=== PATIENT | male | born 1990 | race Caucasian/White ===

== ENCOUNTER 2016-05-07 23:18 | Emergency (ER) | payer OTHER ==
[2016-05-07 23:22] VITALS: BP 115/74; PULSE 83; TEMP 99.2; BMI 29.3
--- NOTE | 2016-05-07 23:25 | PDOC ---
History of Present Illness - General Chief Complaint: Shortness of Breath Stated Complaint: SOB Time Seen by Provider: 05/07/16 23:20 History Source: Patient Exam Limitations: No Limitations - History of Present Illness Initial Comments: 05/07/16 23:44 This is a 26-year-old male who comes in complaining of pleuritic type chest pain 2 days. Patient denies any fever or chills or recent upper respiratory tract infections. Patient said pain is worse when he takes a deep breath and also worse when he moves sometimes. Patient denies history of similar pain in the past. Patient has not taken anything for the pain. Patient is otherwise healthy. PAST MEDICAL HISTORY: no significant history PAST SURGICAL HISTORY: no significant history FAMILY HISTORY: no pertinant history SOCIAL HISTORY: Pt lives with family and is employed. MEDICATIONS: reviewed ALLERGIES: As per nursing notes Review of Systems General: No fevers or chills, no weakness, no weight loss HEENT: No change in vision. No sore throat,. No ear pain CardioVascular: Pleuritic type chest pain as per history of present illness Respiratory:No cough, or wheezing. Gastrointestinal: no nausea, vomitting, diarrhea or constipation, No rectal bleeding Genitourinary: No dysuria, hematuria, or frequency Musculoskeletal: No joint or muscle pain or swelling Neurologic: No headache, vertigo, dizziness or loss of consciousness Psychiatric: nor depression Skin: No rashes or easy bruising Endocrine: no increased thirst or abnormal weight change Allergic: no skin or latex allergy All other systems reviewed and normal Exam: General: Well-nourished well-developed individual, no acute distress HEENT: Throat: Normal, tonsils normal, no erythema or exudate Neck: Supple, no meningeal signs, no lymphadenopathy Eyes::Pupils equal reactive and round, extraocular motion intact Chest: Nontender to palpation Cardiac: S1-S2 normal, regular rate and rhythm, no murmurs rubs or gallops Respiratory: Lungs clear to auscultation bilateral Abdomen: Soft, nondistended, normal bowel sounds, nontender to palpation diffusely Extremities: Warm, dry, no cyanosis, clubbing, or edema Skin: No rashes Neuro: Alert and oriented x3, nonfocal exam, grossly intact, normal gait Psych: Normal mood and affect Assessment and plan: This is a 26-year-old male with pleuritic type chest pain/ pleurisy 2 days. Patient started on ibuprofen 800 mg here in the emergency room and a prescription was sent to his pharmacy to continue the medication. Patient discharged home will follow-up with his primary care doctor in 1 week if not improved. Past History - Past Medical History Allergies/Adverse Reactions: Allergies Allergy/AdvReac Type Severity Reaction Status Date / Time No Known Allergies Allergy Unverified 04/26/15 22:58 Home Medications: Ambulatory Orders Ibuprofen [Motrin -] 800 mg PO TID #42 tablet 05/07/16 Kidney Stones: Yes Liver Disease: Yes - Surgical History Appendectomy: Yes (WITH BOWEL PERF) - Psycho/Social/Smoking Cessation Hx Anxiety: No Suicidal Ideation: No Smoking History: Current every day smoker Have you smoked in the past 12 months: Yes Number of Cigarettes Smoked Daily: 0 If you are a former smoker, when did you quit?: MARIJUANA DAILY Information on smoking cessation initiated: Yes 'Breaking Loose' booklet given: 05/07/16 *Physical Exam - Vital Signs Last Vital Signs Temp Pulse Resp BP Pulse Ox 99.2 F 83 16 115/74 100 05/07/16 23:20 05/07/16 23:20 05/07/16 23:20 05/07/16 23:20 05/07/16 23:20 *DC/Admit/Observation/Transfer Diagnosis at time of Disposition: Pleurisy - Discharge Dispostion Disposition: HOME Condition at time of disposition: Stable Admit: No - Patient Instructions Printed Discharge Instructions: DI for Pleurisy Additional Instructions: Take ibuprofen 800 mg 3 times a day with food don't take on an empty stomach. I sent a prescription to her pharmacy for the ibuprofen. Take the ibuprofen for 7 days Return to the emergency department immediately with ANY new, persistent or worsening symptoms. Continue any medications as previously prescribed by your physician. You should follow up with your primary doctor as soon as possible regarding today's emergency department visit. . Please make sure your doctor reviews the results of your emergency evaluation. Thank you for coming to the Emergency Department today for your care. It was a pleasure to see you today. Please note that your evaluation is INCOMPLETE until you follow-up with your doctor.
[2016-05-07] MEDS ORDERED: IBUPROFEN 400 MG TABLET (FP) PO ONE ×2 (23:45→23:47)
== END 2016-05-08 | disposition home or self-care (01) ==
LOC: FER 23:18
DX: R09.1 Pleurisy (principal); F17.210 Nicotine dependence, cigarettes, uncomplicated; Z87.442 Personal history of urinary calculi
CPT/HCPCS: 99281-25

== ENCOUNTER 2016-07-08 22:20 | Emergency (ER) | payer SELFPAY ==
[2016-07-08 22:48] VITALS: BP 118/65; PULSE 61; TEMP 98.3; BMI 28.3
--- NOTE | 2016-07-08 23:09 | PDOC ---
History of Present Illness - General History Source: Patient Exam Limitations: No Limitations - History of Present Illness Initial Comments: 07/08/16 23:18 The patient is a 26 year old male with no significant past medical history who presents to the ED with several days of worsening lower abdominal pain. Patient reports he developed lower abdominal pain that is colicky in nature several days ago, however today his pain worsen. Reports associated nausea and nonbloody vomiting, but no diarrhea. His last meal was about 10am this morning and states having normal bowel movements. The patient denies fever, chills, cough, SOB, chest pain, and palpitations. Allergies: NKDA Social History: No alcohol, tobacco, or drug use reported. Past Surgical History: s/p appendectomy and bowel perf resulted from the appendectomy PCP: Dr. Alejandro De Dios <Julia Glover - Last Filed: 07/09/16 00:48> - General History Source: Patient <Donovan Rivas - Last Filed: 07/09/16 00:55> - General Chief Complaint: Pain, Acute Stated Complaint: ABDOMINAL PAIN Time Seen by Provider: 07/08/16 23:08 Past History <Julia Glover - Last Filed: 07/09/16 00:48> - Past Medical History Kidney Stones: Yes Liver Disease: Yes - Surgical History Appendectomy: Yes (WITH BOWEL PERF) - Psycho/Social/Smoking Cessation Hx Anxiety: No Suicidal Ideation: No Smoking History: Current every day smoker Have you smoked in the past 12 months: Yes Number of Cigarettes Smoked Daily: 0 If you are a former smoker, when did you quit?: MARIJUANA DAILY Information on smoking cessation initiated: No 'Breaking Loose' booklet given: 05/07/16 <Donovan Rivas - Last Filed: 07/09/16 00:55> - Past Medical History Allergies/Adverse Reactions: Allergies Allergy/AdvReac Type Severity Reaction Status Date / Time No Known Allergies Allergy Verified 07/08/16 22:44 Home Medications: Ambulatory Orders Ibuprofen 800 mg PO TID #30 tablet 07/09/16 Oxycodone HCl/Acetaminophen [Percocet 5-325 mg Tablet] 1 - 2 tab PO Q6H #20 tablet MDD 4 07/09/16 Review of Systems - Review of Systems Able to Perform ROS?: Yes Comments:: 07/08/16 23:18 CONSTITUTIONAL: Absent: fever, no chills, no fatigue EYES: Absent: visual changes ENT: Absent: ear pain, no sore throat CARDIOVASCULAR: Absent: chest pain, no palpitations RESPIRATORY: Absent: cough, no SOB GI: +lower abdominal pain, nausea, vomiting Absent: no constipation, no diarrhea GENITOURINARY: Absent: dysuria, no frequency, no hematuria MUSKULOSKELETAL: Absent: back pain, no arthralgia, no myalgia SKIN: Absent: rash NEURO: Absent: headache <Julia Glover - Last Filed: 07/09/16 00:48> *Physical Exam - Vital Signs Last Vital Signs Temp Pulse Resp BP Pulse Ox 98.3 F 61 18 118/65 99 07/08/16 22:47 07/08/16 22:47 07/08/16 22:47 07/08/16 22:47 07/08/16 22:47 - Physical Exam Comments: 07/08/16 23:18 GENERAL: Well-appearing, well-nourished. No apparent distress. HEENT: Normocephalic, atraumatic. PERRL, EOM intact. CARDIOVASCULAR: Normal S1, S2. Regular rate and rhythm. PULMONARY: Clear to auscultation bilaterally. ABDOMEN: Soft, non-distended, non-tender. EXTREMITIES: Normal ROM in all four extremities. No gross deformities. SKIN: Warm, dry. No rash NEUROLOGICAL: No focal neurological deficits. <Julia Glover - Last Filed: 07/09/16 00:48> - Vital Signs Last Vital Signs Temp Pulse Resp BP Pulse Ox 98.3 F 61 18 118/65 99 07/08/16 22:47 07/08/16 22:47 07/08/16 22:47 07/08/16 22:47 07/08/16 22:47 <Donovan Rivas - Last Filed: 07/09/16 00:55> ED Treatment Course - LABORATORY CBC & Chemistry Diagram: 07/08/16 23:20 07/08/16 23:20 - RADIOLOGY Radiograph Interpretation: 07/09/16 00:48 EXAM: CT abdomen and pelvis without contrast Reviewed by Imaging industrial automation engineer: FINDINGS: Lung bases are clear. The visualized cardiac chambers are normal size and configuration. Normal liver, gallbladder, pancreas, spleen, adrenal glands and kidneys. There is a 10 mm mid right ureteral stone without hydroureter. No other stones identified. The stomach and abdominal small and large bowel are normal. There is no aortic aneurysm. There is no significant retroperitoneal lymphadenopathy. The pelvic small and large bowel are normal. Status post appendectomy. The urinary bladder and prostate gland are normal. No pelvic free fluid is identified. There is no significant pelvic lymphadenopathy. IMPRESSION: 10 mm mid right ureteral stone without hydroureter. <Julia Glover - Last Filed: 07/09/16 00:48> - LABORATORY CBC & Chemistry Diagram: 07/08/16 23:20 07/08/16 23:20 <Donovan Rivas - Last Filed: 07/09/16 00:55> Medical Decision Making - Medical Decision Making 07/09/16 00:53 Dr. Rivas: The scribe's documentation has been prepared under my direction and personally reviewed by me in its entirery. I confirm that the note above accurately reflects all work, treatment, procedures, and medical decision making performed by me. Pt found to have a 10mm stone on right side without sign of hydronephrosis. Pt advised to follow up with urology. Rx Percocet and Ibuprofen sent to pharmacy <Donovan Rivas - Last Filed: 07/09/16 00:55> *DC/Admit/Observation/Transfer - Attestations Scribe Attestion: 07/08/16 23:18 Documentation prepared by Julia Glover, acting as medical technologist microbiology for Donovan Rivas MD <Julia Glover - Last Filed: 07/09/16 00:48> - Discharge Dispostion Admit: No <Donovan Rivas - Last Filed: 07/09/16 00:55> Diagnosis at time of Disposition: Renal calculus - Discharge Dispostion Disposition: HOME Condition at time of disposition: Stable - Prescriptions Prescriptions: Ibuprofen 800 mg PO TID #30 tablet Oxycodone HCl/Acetaminophen [Percocet 5-325 mg Tablet] 1 - 2 tab PO Q6H #20 tablet MDD 4 - Referrals Referrals: Alejandro De Dios MD [Primary Care Provider] - Mike Drake MD [Staff Physician] - - Patient Instructions Printed Discharge Instructions: Kidney Stones -- Adult Additional Instructions: TAke medication as directed. Follow up with the urologist referred to you in the ER.
[2016-07-08] MEDS ORDERED: KETOROLAC TROMETHAMINE 30 MG/1 ML VIAL IVPUSH ONE (23:13)
[2016-07-08] MEDS ORDERED: ONDANSETRON 4 MG/2 ML VIAL IVPUSH STA (23:13)
[2016-07-08] MEDS ORDERED: SODIUM CHLORIDE 1,000 ML IV STA (23:13)
[2016-07-08] MEDS ORDERED: KETOROLAC TROMETHAMINE 30 MG/1 ML VIAL ONE (23:25)
[2016-07-08] MEDS ORDERED: ONDANSETRON 4 MG/2 ML VIAL ONE (23:25)
[2016-07-08 23:28] LABS: URINE APPEARANCE CLEAR; URINE BILIRUBIN NEGATIVE (NEGATIVE); URINE COLOR YELLOW; URINE GLUCOSE (UA) NEGATIVE (NEGATIVE); URINE KETONE NEGATIVE (NEGATIVE); URINE NITRITE NEGATIVE (NEGATIVE); URINE PROTEIN NEGATIVE (NEGATIVE); URINE UROBILINOGEN NEGATIVE E.U./dl (0.2-1.0)
[2016-07-08 23:58] LABS: URINE BLOOD 1+ (NEGATIVE); URINE LEUK ESTERASE TRACE (NEGATIVE)
[2016-07-09 00:02] LABS: BASOPHIL 0.3 % (0-2.0); EOSINOPHIL 1.1 % (0-4.5); MCH 31.7 pg (25.7-33.7); MEAN CELL VOLUME 90.8 fl (80-96); MEAN PLT VOLUME 7.7 fl (7.5-11.1); NEUTROPHILS 44.3 % (42.8-82.8); PLATELET COUNT 299 K/MM3 (134-434); RDW 12.9 % (11.9-15.9); WHITE BLOOD COUNT 9.2 K/mm3 (4.0-10.0)
[2016-07-09 00:03] LABS: URINE BACTERIA FEW /hpf (NONE SEEN); URINE MUCUS MANY; URINE RBC 31 /hpf (0-3); URINE WBC 15 /hpf (3-5)
[2016-07-09 00:22] LABS: ALBUMIN 4.1 g/dl (3.4-5.0); ANION GAP 11 (8-16); BILIRUBIN,TOTAL 0.7 mg/dL (0.2-1.0); CALCIUM 9.3 mg/dL (8.5-10.1); CO2 31 mmol/L (21-32); CREATININE 0.8 mg/dL (0.7-1.3); GLUCOSE,RANDOM 86 mg/dL (74-106); SGOT/AST 15 U/L (15-37); SGPT/ALT 40 U/L (12-78); TOT PROT 8.1 g/dl (6.4-8.2)
[2016-07-09 00:23] LABS: ALK PHOS 58 U/L (45-117)
[2016-07-09] MEDS ORDERED: OXYCODONE/APAP 5/325MG COMBO TABLET PO ONE (00:50)
[2016-07-09] MEDS ORDERED: OXYCODONE/APAP 5/325MG COMBO TABLET ONE (01:00)
== END 2016-07-09 01:06 | disposition home or self-care (01) ==
LOC: JER 22:20
PROC: 3E0333Z Introduction of Anti-inflammatory into Peripheral Vein, Percutaneous Approach (ICD-10-PCS; principal; 2016-07-08)
PROC: 3E033GC Introduction of Other Therapeutic Substance into Peripheral Vein, Percutaneous Approach (ICD-10-PCS; 2016-07-08)
DX: N20.0 Calculus of kidney (principal); Z87.442 Personal history of urinary calculi
CPT/HCPCS: 36415; 74176; 80053; 81003; 81015; 85025; 99281-25

== ENCOUNTER 2016-07-31 22:39 | Emergency (ER) | payer SELFPAY ==
[2016-07-31 22:47] VITALS: BP 118/62; PULSE 72; TEMP 99.5; BMI 28.7
--- NOTE | 2016-07-31 23:15 | PDOC ---
History of Present Illness - General Chief Complaint: Pain, Acute Stated Complaint: RT KNEE PAIN Time Seen by Provider: 07/31/16 22:47 History Source: Patient Exam Limitations: No Limitations - History of Present Illness Initial Comments: 07/31/16 23:11 This is a 26-year-old male who comes in complaining of right knee pain. Patient said beginning after he was wrestling with his son when he was knocked into him from behind causing him to fall backwards and twisted his knee. Patient is able to wear bare weight but he says it is uncomfortable when he fully extends his knee. Patient is otherwise healthy and denies any complaints. PAST MEDICAL HISTORY: no significant history PAST SURGICAL HISTORY: no significant history FAMILY HISTORY: no pertinant history SOCIAL HISTORY: Pt lives with family and is employed. MEDICATIONS: reviewed ALLERGIES: As per nursing notes Review of Systems General: No fevers or chills, no weakness, no weight loss HEENT: No change in vision. No sore throat,. No ear pain CardioVascular: No chest pain or shortness of breath Respiratory:No cough, or wheezing. Gastrointestinal: no nausea, vomitting, diarrhea or constipation, No rectal bleeding Genitourinary: No dysuria, hematuria, or frequency Musculoskeletal: Right knee pain Neurologic: No headache, vertigo, dizziness or loss of consciousness Psychiatric: nor depression Skin: No rashes or easy bruising Endocrine: no increased thirst or abnormal weight change Allergic: no skin or latex allergy All other systems reviewed and normal GENERAL: The patient is awake, alert, and fully oriented, in no acute distress. HEAD: Normal with no signs of trauma. EYES: Pupils equal, round and reactive to light, extraocular movements intact, sclera anicteric, conjunctiva clear. EXTREMITIES: Normal range of motion, no edema. Right knee: There is some mild swelling medially with tenderness on palpation over the medial collateral ligament. Patient is able to fully extend his knee with minimal difficulty. Neurovascular distal is intact. NEUROLOGICAL: Normal speech, normal gait. PSYCH: Normal mood, normal affect. SKIN: Warm, Dry, normal turgor, no rashes or lesions noted. X-ray no acute fracture or dislocation question patella fidencio. Assessment and plan: This is a 26-year-old male who injured his knee well play wrestling with his son. Patient has a sprain of most likely the medial collateral ligament. Patient given Gregor wrap and orthopedic follow-up. Past History - Past Medical History Allergies/Adverse Reactions: Allergies Allergy/AdvReac Type Severity Reaction Status Date / Time No Known Allergies Allergy Verified 07/08/16 22:44 Home Medications: Ambulatory Orders NK [No Known Home Medication] 07/31/16 Kidney Stones: Yes Liver Disease: Yes - Surgical History Appendectomy: Yes (WITH BOWEL PERF) - Psycho/Social/Smoking Cessation Hx Anxiety: No Suicidal Ideation: No Smoking History: Never smoked Have you smoked in the past 12 months: Yes Number of Cigarettes Smoked Daily: 0 If you are a former smoker, when did you quit?: MARIJUANA DAILY 'Breaking Loose' booklet given: 05/07/16 *Physical Exam - Vital Signs Last Vital Signs Temp Pulse Resp BP Pulse Ox 99.5 F 72 16 118/62 100 07/31/16 22:44 07/31/16 22:44 07/31/16 22:44 07/31/16 22:44 07/31/16 22:44 ED Treatment Course - RADIOLOGY Radiology Studies Ordered: Category Date Time Status KNEE 3 POS-RIGHT [RAD] Stat Radiology 07/31/16 22:41 Taken *DC/Admit/Observation/Transfer Diagnosis at time of Disposition: Sprain of right knee Qualifiers: Encounter type: initial encounter Involved ligament of knee: medial collateral ligament Qualified Code(s): S83.411A - Sprain of medial collateral ligament of right knee, initial encounter - Discharge Dispostion Disposition: HOME Condition at time of disposition: Stable Admit: No - Patient Instructions Printed Discharge Instructions: DI for Knee Sprain, How to Use an Elastic Bandage-Knee Sprain Additional Instructions: For the pain you can take ibuprofen or acetaminophen. Follow-up with an orthopedist if you need an orthopedist call Dr. Moore at [phone] for an appointment. Return to the emergency department immediately with ANY new, persistent or worsening symptoms. Continue any medications as previously prescribed by your physician. You should follow up with your primary doctor as soon as possible regarding today's emergency department visit. . Please make sure your doctor reviews the results of your emergency evaluation. Thank you for coming to the Emergency Department today for your care. It was a pleasure to see you today. Please note that your evaluation is INCOMPLETE until you follow-up with your doctor.
[2016-07-31] MEDS ORDERED: IBUPROFEN 600 MG TABLET (FP) PO ONE ×2 (23:21→23:22)
== END 2016-07-31 23:24 | disposition home or self-care (01) ==
LOC: FER 22:39
DX: S83.411A Sprain of medial collateral ligament of right knee, initial encounter (principal); W18.39XA Other fall on same level, initial encounter; Y93.72 Activity, wrestling; Y92.9 Unspecified place or not applicable
CPT/HCPCS: 73562-TC-RT; 99282-25

== ENCOUNTER 2017-11-21 18:45 | Emergency (ER) | payer OTHER ==
[2017-11-21 18:58] VITALS: BP 124/83; PULSE 84; TEMP 99; BMI 32.1
--- NOTE | 2017-11-21 18:59 | PDOC ---
History of Present Illness - General History Source: Patient, Old Records Exam Limitations: No Limitations - History of Present Illness Initial Comments: 11/21/17 19:26 Patient is a 27 year old male with no significant past medical history who present to the ED with complaints of right sided chest pain that began x8 days ago. Patient reports sitting in the studio last week when experienced an episode of syncope that he states lasted x1 minute in duration. He reports listening to his friend talk about his daughters surgery when he suddenly began to feel unwell, followed by feinting. Patient reports experiencing right sided chest pain since regaining consciousness. He reports right sided chest pain is increased with movement and deep inspiration. As per patient's girlfriend, patient took one dose of 800mg of motrin x7 days ago on wednesday with no relief. Patient reports pain has shown no signs of subsiding over time, prompting him to come into the ED for further evaluation. Denies nausea, vomiting. Denies contact with sick individuals, out of state travelling. Denies fevers, chills. Denies dysuria. Hematuria. Denies constipation, diarrhea. Denies any other symptoms. Allergies: None Social history: No smoking. No alcohol. No illicit drugs. Surgical history: s/p appendectomy and bowel perf resulted from the appendectomy PMD: None <Cesar Christensen - Last Filed: 11/21/17 19:26> <Rosalee Merchant - Last Filed: 11/21/17 19:44> - General Chief Complaint: Pain Stated Complaint: RIGHT CHEST WALL PAIN Time Seen by Provider: 11/21/17 18:58 Past History <Cesar Christensen - Last Filed: 11/21/17 19:26> - Past Medical History COPD: No Kidney Stones: Yes Liver Disease: Yes - Surgical History Appendectomy: Yes (WITH BOWEL PERF) - Suicide/Smoking/Psychosocial Hx Smoking History: Never smoked Have you smoked in the past 12 months: No Number of Cigarettes Smoked Daily: 0 If you are a former smoker, when did you quit?: MARIJUANA DAILY Information on smoking cessation initiated: Yes 'Breaking Loose' booklet given: 05/07/16 Hx Alcohol Use: No Drug/Substance Use Hx: Yes (MARIJUANA) Substance Use Type: Marijuana <Rosalee Merchant - Last Filed: 11/21/17 19:44> - Past Medical History Allergies/Adverse Reactions: Allergies Allergy/AdvReac Type Severity Reaction Status Date / Time No Known Allergies Allergy Verified 11/21/17 18:46 Home Medications: Ambulatory Orders NK [No Known Home Medication] 11/21/17 Review of Systems - Review of Systems Able to Perform ROS?: Yes Comments:: 11/21/17 19:26 GENERAL/CONSTITUTIONAL: No fever or chills. No weakness. HEAD, EYES, EARS, NOSE AND THROAT: No change in vision. No ear pain or discharge. No sore throat. CARDIOVASCULAR: +Right sided chest pain. RESPIRATORY: No cough, wheezing, or hemoptysis. GASTROINTESTINAL: No nausea, vomiting, diarrhea or constipation. GENITOURINARY: No dysuria, frequency, or change in urination. MUSCULOSKELETAL: No joint or muscle swelling or pain. No neck or back pain. SKIN: No rash NEUROLOGIC: No headache, vertigo, loss of consciousness, or change in strength/ sensation. ENDOCRINE: No increased thirst. No abnormal weight change. HEMATOLOGIC/LYMPHATIC: No anemia, easy bleeding, or history of blood clots. ALLERGIC/IMMUNOLOGIC: No hives or skin allergy. <Cesar Christensen - Last Filed: 11/21/17 19:26> *Physical Exam - Vital Signs Last Vital Signs Temp Pulse Resp BP Pulse Ox 99 F 84 16 124/83 11/21/17 18:46 11/21/17 18:46 11/21/17 18:46 11/21/17 18:46 - Physical Exam Comments: 11/21/17 19:27 GENERAL: Awake, alert, and fully oriented, in no acute distress HEAD: No signs of trauma EYES: PERRLA, EOMI, sclera anicteric, conjunctiva clear ENT: Auricles normal inspection, hearing grossly normal, nares patent, oropharynx clear without exudates. Moist mucosa NECK: Normal ROM, supple, no lymphadenopathy, JVD, or masses LUNGS: Breath sounds equal, clear to auscultation bilaterally. No wheezes, and no crackles HEART: Regular rate and rhythm, normal S1 and S2, no murmurs, rubs or gallops ABDOMEN: Soft, nontender, normoactive bowel sounds. No guarding, no rebound. No masses EXTREMITIES: Normal range of motion, no edema. No clubbing or cyanosis. No cords, erythema, or tenderness MUSCULOSKELETAL: +Right sided pleuritic chest pain. NEUROLOGICAL: Cranial nerves II through XII grossly intact. Normal speech, normal gait SKIN: Warm, Dry, normal turgor, no rashes or lesions noted. <Cesar Christensen - Last Filed: 11/21/17 19:26> - Vital Signs Last Vital Signs Temp Pulse Resp BP Pulse Ox 99 F 84 16 124/83 11/21/17 18:46 11/21/17 18:46 11/21/17 18:46 11/21/17 18:46 <Rosalee Merchant - Last Filed: 11/21/17 19:44> ED Treatment Course - Medications Given in the ED: ED Medications Discontinued Medications Generic Name Dose Route Start Last Admin Trade Name Gloria PRN Reason Stop Dose Admin Ketorolac Tromethamine 60 mg 11/21/17 19:09 11/21/17 19:18 Toradol Injection - IM 11/21/17 19:10 60 mg ONCE ONE Administration Methocarbamol 1,000 mg 11/21/17 19:09 11/21/17 19:17 Robaxin - PO 11/21/17 19:10 1,000 mg ONCE ONE Administration <Cesar Christensen - Last Filed: 11/21/17 19:26> Medical Decision Making - Medical Decision Making 11/21/17 19:44 Patient Name: JUDI LEON THIS IS A PRELIMINARY REPORT FROM [facility] [employer] DATE OF SERVICE: 2017-11-21 19:23:56 IMAGES: 3 Exam: Chest 2 views Clinical indication:Right sided chest pain. Comparison:None available. Findings: PA and lateral views of the chest were provided. The pulmonary parenchyma and pleural surfaces are unremarkable. The visualized cardiomediastinal structures and bony structures are unremarkable. Impression: Negative chest x-ray <Rosalee Merchant - Last Filed: 11/21/17 19:44> *DC/Admit/Observation/Transfer - Attestations Scribe Attestion: 11/21/17 19:27 Documentation prepared by Cesar Christensen, acting as medical device for Rosalee Merchant MD. <Cesar Christensen - Last Filed: 11/21/17 19:26> - Discharge Dispostion Decision to Admit order: No <Rosalee Merchant - Last Filed: 11/21/17 19:44> Diagnosis at time of Disposition: Pleurisy, Musculoskeletal chest pain - Discharge Dispostion Condition at time of disposition: Stable - Patient Instructions Printed Discharge Instructions: DI for Atypical Chest Pain
[2017-11-21] MEDS ORDERED: KETOROLAC TROMETHAMINE 60 MG/2 ML VIAL IM ONE (19:09)
[2017-11-21] MEDS ORDERED: METHOCARBAMOL 500 MG TABLET PO ONE (19:09)
[2017-11-21] MEDS ORDERED: METHOCARBAMOL 500 MG TABLET ONE (19:14)
[2017-11-21] MEDS ORDERED: KETOROLAC TROMETHAMINE 60 MG/2 ML VIAL ONE (19:14)
--- NOTE | 2017-11-22 14:30 | EKG ---
Test Reason : Blood Pressure : / mmHG Vent. Rate : 066 BPM Atrial Rate : 066 BPM P-R Int : 160 ms QRS Dur : 106 ms QT Int : 370 ms P-R-T Axes : 057 047 029 degrees QTc Int : 387 ms NORMAL SINUS RHYTHM NORMAL ECG NO PREVIOUS ECGS AVAILABLE Confirmed by JOSE ALFREDO MAZARIEGOS MD ([id number]) on 11/22/2017 2:30:37 PM Referred By: MARISA Confirmed By:JOSE ALFREDO MAZARIEGOS MD
== END 2017-11-21 19:49 | disposition home or self-care (01) ==
LOC: FER 18:45
PROC: 3E0233Z Introduction of Anti-inflammatory into Muscle, Percutaneous Approach (ICD-10-PCS; principal; 2017-11-21)
DX: R09.1 Pleurisy (principal); R07.89 Other chest pain
CPT/HCPCS: 71046-TC-FY; 93005; 99282-25

== ENCOUNTER 2018-04-16 21:36 | Emergency (ER) | payer OTHER ==
[2018-04-16 21:47] VITALS: BP 134/84; PULSE 100; TEMP 100.8; BMI 31.8
--- NOTE | 2018-04-16 22:45 | PDOC ---
History of Present Illness - General History Source: Patient Exam Limitations: No Limitations - History of Present Illness Initial Comments: 04/16/18 23:05 The patient is a 28 year old male with a past medical history of kidney stones, hand arthritis, and persistent lateral knee pain here today for evaluation of flu symptoms. The patient reports that his symptoms began on (04/14) and have been getting worse. He reports having fever, headache, back pain, general weakness, sore throat, and rhinorrhea. He notes taking motrin once with no relief. The patient also reports coldness in hands and feet and intermittent numbness in hands. Patient denies lightheadedness. Denies chills. Denies chest pain, shortness of breath. Denies nausea, vomiting, diarrhea, abdominal pain. Denies lower extremity edema. Denies urinary symptoms. Denies sick contact. Allergies: NKA Social history: Denies tobacco use PCP: none <Vance Phillips - Last Filed: 04/16/18 23:05> <Libia Sandoval - Last Filed: 04/17/18 04:04> - General Chief Complaint: Cold Symptoms Stated Complaint: FEVER Time Seen by Provider: 04/16/18 22:44 Past History <Vance Phillips - Last Filed: 04/16/18 23:05> - Past Medical History COPD: No Kidney Stones: Yes Liver Disease: Yes - Surgical History Appendectomy: Yes (WITH BOWEL PERF) - Suicide/Smoking/Psychosocial Hx Smoking History: Never smoked Have you smoked in the past 12 months: No Number of Cigarettes Smoked Daily: 0 If you are a former smoker, when did you quit?: MARIJUANA DAILY 'Breaking Loose' booklet given: 05/07/16 Hx Alcohol Use: No Drug/Substance Use Hx: Yes (MARIJUANA) Substance Use Type: Marijuana <Libia Sandoval - Last Filed: 04/17/18 04:04> - Past Medical History Allergies/Adverse Reactions: Allergies Allergy/AdvReac Type Severity Reaction Status Date / Time No Known Allergies Allergy Verified 11/21/17 18:46 Home Medications: Ambulatory Orders Ketorolac Tromethamine [Toradol] 10 mg PO TID PRN #20 tablet 04/16/18 Review of Systems - Review of Systems Able to Perform ROS?: Yes Comments:: 04/16/18 23:05 All systems are reviewed and negative except as noted in the HPI <Vance Phillips - Last Filed: 04/16/18 23:05> *Physical Exam - Vital Signs Last Vital Signs Temp Pulse Resp BP Pulse Ox 100.8 F H 100 H 16 134/84 98 04/16/18 21:37 04/16/18 21:37 04/16/18 21:37 04/16/18 21:37 04/16/18 21:37 - Physical Exam Comments: 04/16/18 23:06 GENERAL: Awake, alert, and fully oriented, in no acute distress HEAD: No signs of trauma EYES: PERRLA, EOMI, sclera anicteric, conjunctiva clear ENT: +dry mucous membranes. +erythematous throat with 1+ edematous tonsils. Auricles normal inspection, hearing grossly normal, nares patent, oropharynx clear without exudates. NECK: Normal ROM, supple, no lymphadenopathy, JVD, or masses LUNGS: Breath sounds equal, clear to auscultation bilaterally. No wheezes, and no crackles HEART: Regular rate and rhythm, normal S1 and S2, no murmurs, rubs or gallops ABDOMEN: Soft, nontender, normoactive bowel sounds. No guarding, no rebound. No masses EXTREMITIES: +mild tenderness of fibular head of right lower leg. Normal range of motion, no edema. No clubbing or cyanosis. No cords, erythema, or tenderness NEUROLOGICAL: Cranial nerves II through XII grossly intact. Normal speech, normal gait SKIN: Warm, Dry, normal turgor, no rashes or lesions noted. <AlanVance - Last Filed: 04/16/18 23:05> - Vital Signs Last Vital Signs Temp Pulse Resp BP Pulse Ox 100.8 F H 100 H 16 134/84 98 04/16/18 21:37 04/16/18 21:37 04/16/18 21:37 04/16/18 21:37 04/16/18 21:37 <Libia Sandoval - Last Filed: 04/17/18 04:04> Moderate Sedation - Procedure Monitoring Vital Signs: Procedure Monitoring Vital Signs Temperature 100.8 F H 04/16/18 21:37 Pulse Rate 100 H 04/16/18 21:37 Respiratory Rate 16 04/16/18 21:37 Blood Pressure 134/84 04/16/18 21:37 O2 Sat by Pulse Oximetry (%) 98 04/16/18 21:37 <Vance Phillips - Last Filed: 04/16/18 23:05> - Procedure Monitoring Vital Signs: Procedure Monitoring Vital Signs Temperature 100.8 F H 04/16/18 21:37 Pulse Rate 100 H 04/16/18 21:37 Respiratory Rate 16 04/16/18 21:37 Blood Pressure 134/84 04/16/18 21:37 O2 Sat by Pulse Oximetry (%) 98 04/16/18 21:37 <Libia Sandoval - Last Filed: 04/17/18 04:04> Medical Decision Making - Medical Decision Making Documentation has been prepared under my direction and personally reviewed by me in its entirety. I attest that this documented accurately reflects all work, treatment, procedures and medical decision making performed by me. <Libia Sandoval - Last Filed: 04/17/18 04:04> *DC/Admit/Observation/Transfer - Attestations Scribe Attestion: 04/16/18 23:06 Documentation prepared by FREDDY Llanes, acting as healthcare or medical for Libia Sandoval MD. <Vance Phillips - Last Filed: 04/16/18 23:05> <Libia Sandoval - Last Filed: 04/17/18 04:04> Diagnosis at time of Disposition: Viral syndrome - Discharge Dispostion Disposition: HOME Condition at time of disposition: Stable - Prescriptions Prescriptions: Ketorolac Tromethamine [Toradol] 10 mg PO TID PRN #20 tablet PRN Reason: Pain - Referrals Referrals: Delroy Frey MD [Staff Physician] - - Patient Instructions Printed Discharge Instructions: DI for Viral Syndrome Additional Instructions: drink plenty of water;rest Can take Toradol tablets or acetaminophen as needed for pain/fever No work for the next 2 days We will contact you if influenza is positive; Tamiflu prescription will be sent here pharmacy Return to ER if you have severe pain/persistent high fever Follow-up with orthopedic group within the next 2 weeks for right lower leg pain/hand swelling - Post Discharge Activity Forms/Work/School Notes: Back to Work
[2018-04-16] MEDS ORDERED: IBUPROFEN 400 MG TABLET (FP) PO ONE ×2 (22:59→23:00)
[2018-04-16 23:15] LABS: PH,URINE 6.5 (4.5-8); URINE APPEARANCE Clear; URINE BILIRUBIN Negative (NEGATIVE); URINE COLOR Yellow; URINE GLUCOSE (UA) Negative (NEGATIVE); URINE KETONE Trace (NEGATIVE); URINE LEUK ESTERASE Negative (NEGATIVE); URINE NITRITE Negative (NEGATIVE); URINE PROTEIN Trace (NEGATIVE)
== END 2018-04-16 23:30 | disposition home or self-care (01) ==
LOC: FER 21:36
DX: B34.9 Viral infection, unspecified (principal)
CPT/HCPCS: 81003; 87804; 99282-25